=== PATIENT | female | born 1960 | race Caucasian/White ===

== ENCOUNTER 2017-03-10 16:05 | Emergency (ER) | payer MEDICAID ==
--- NOTE | 2017-03-10 16:19 | CPEKG ---
Heart Rate: 75 RR Interval: 800 P-R Interval: 152 QRSD Interval: 88 QT Interval: 396 QTC Interval: 443 P [place]: 68 QRS [place]: 74 T Wave [place]: -43 EKG Severity - NORMAL ECG - EKG Impression: SINUS RHYTHM EKG Impression: NON SPECIFIC ST/T WAVE CHANGES NOTED Electronically Signed By: Morgan Robertson 11-Mar-2017 09:26:48
[2017-03-10 16:40] LABS: % IMMATURE GRANULYOCYTES 0.2 % (0.0-1.1); ABSOLUTE IMMATURE GRANULOCYTES 0.01 10^3/uL (0.00-0.10); ADD DIFF? NO; ADD MORPH? NO; ADD SCAN? NO; ATYPICAL LYMPHOCYTE FLAG 10 (0-99); FRAGMENT RBC FLAG 0 (0-99); HEMATOCRIT 48.5 % (38.0-47.0); HEMOGLOBIN 16.2 g/dL (12.6-16.3); LEFT SHIFT FLG 0 (0-99); LIPEMIA HEMOLYSIS FLAG 80 (0-99); MEAN CELL HEMOGLOBIN 29.8 pg (27.9-34.1); MEAN CELL HEMOGLOBIN CONCENTR. 33.4 g/dL (32.4-36.7); MEAN CELL VOLUME 89.3 fL (81.5-99.8); MEAN PLATELET VOLUME 10.9 fL (8.7-11.7); PLATELET CLUMPS FLAG 0 (0-99); PLATELET COUNT 258 10^3/uL (150-400); RED BLOOD CELL COUNT 5.43 10^6/uL (4.18-5.33); RED CELL DISTRIBUTION WIDTH 12.8 % (11.5-15.2)
[2017-03-10 16:52] LABS: ANION GAP 14 mEq/L (8-16); CALCIUM 10.7 mg/dL (8.5-10.4); CARBON DIOXIDE 23 mEq/l (22-31); CHLORIDE 104 mEq/L (97-110); CREATININE 0.9 mg/dL (0.6-1.0); GLOMERULAR FILTRATION RATE > 60; GLUCOSE 80 mg/dL (70-100); POTASSIUM 4.2 mEq/L (3.5-5.2); SODIUM 141 mEq/L (134-144)
--- NOTE | 2017-03-10 16:54 | EDPHY ---
H & P Stated Complaint: dull ache midsternal cp for 6 weeks increasing fatigue Time Seen by Provider: 03/10/17 16:13 - Personal History Current Tetanus/Diphtheria Vaccine: Unsure - Medical/Surgical History Hx Asthma: No Hx Chronic Respiratory Disease: No Hx Diabetes: No Hx Cardiac Disease: No Hx Renal Disease: No Hx Cirrhosis: No Hx Alcoholism: No Hx HIV/AIDS: No Hx Splenectomy or Spleen Trauma: No Other PMH: denies - Social History Smoking Status: Never smoked Constitutional: Initial Vital Signs Temperature (C) 36.7 C 03/10/17 16:08 Heart Rate 65 03/10/17 16:08 Respiratory Rate 18 03/10/17 16:08 Blood Pressure 132/86 H 03/10/17 16:08 O2 Sat (%) 95 03/10/17 16:08 O2 Delivery Mode Room Air Allergies/Adverse Reactions: No Known Allergies Allergy (Verified 03/10/17 16:08) Home Medications: Medication Instructions Recorded NK [No Known Home Meds] 09/24/14 Medical Decision Making - Diagnostics Imaging Results: Imaging Impressions Chest X-Ray 03/10/17 16:34 Impression: Stable and normal. No pneumonia. Chest/Thorax CTA 03/10/17 17:35 Impression: No evidence for pulmonary embolic disease. Results called and discussed with Rg Ross MD, at 03/10/2017 18:35 General information for patients regarding this examination can be found at [email or web address]. If you have questions or comments about this report, please contact me at [phone] (hospital) or [phone] (cell). Imaging: Discussed imaging studies w/ screener and blender Radiologist, I viewed and interpreted images myself ED Course/Re-evaluation: CHIEF COMPLAINT: Chest pain HISTORY OF PRESENT ILLNESS: The patient is a 57 y/o female complaining of intermittent substernal chest pain and palpations for the last several months. In August she developed a cold, cough, and fever while in [facility]. She was not evaluated and felt ill for several weeks. She then developed intermittent chest pressure and pain. Her symptoms are most noticeable at night and cause difficulty sleeping and she feels like she can hear her heart beating. Her symptoms are not exacerbated by exertion and she has no associated radiation, diaphoresis, or nausea. At worst her pain is 5/10 in severity. She feels like she never recovered from her illness 6 months ago and continues to have a cough with yellowish sputum. In the past few days her pain became nearly constant rated about 3/10 in intensity and is associated with some lightheadedness. The lightheadedness episodes can last a few hours. She also feels more weak while performing typical tasks like gardening. No leg swelling. She was evaluated here in September 2014 for chest pain and had a normal ED work up, but left the hospital AMA rather than be admitted. REVIEW OF SYSTEMS: A 10 point review of systems was performed and is negative with the exception of the elements mentioned in the history of present illness. PHYSICAL EXAM: HR, BP, O2 Sat, RR. Temp noted General Appearance: Alert, well hydrated, appropriate, and non-toxic appearing. Head: Atraumatic without scalp tenderness or obvious injury Eyes: Pupils equal, round, reactive to light and accommodation, EOMI, no trauma , no injection. Ears: Clear bilaterally, no perforation, normal landmarks Nose: Atraumatic, no rhinorrhea, clear. Throat: Mucus membranes moist. Neck: Supple, non-tender, no lymphadenopathy. No JVD. Respiratory: No retractions, no distress, no wheezes, and no accessory muscle use. Diminished at the right base, otherwise normal. Cardiovascular: Regular rate and rhythm, no murmurs, rubs, or gallops. Good capillary refill all extremities. Gastrointestinal: Abdomen is soft, non-tender, non-distended, no masses, no rebound, no guarding, no peritoneal signs. Musculoskeletal: Normal active ROM of all extremities, atraumatic. No pitting edema. Neurological: Alert, appropriate, and interactive. Nonfocal neuro exam. Skin: No rashes, good turgor, no nodules on palpation. PAST MEDICAL HISTORY: Denies. No family history of cardiac disease. PAST SURGICAL HISTORY: Denies SOCIAL HISTORY: at bedside, non-smoker, traveled to [facility] in August. PCP: Dr. Ivana Page at [facility] DIAGNOSTICS/PROCEDURES/CRITICAL CARE TIME: The 12 lead EKG was interpreted by myself. Sinus rhythm rate 75, occasional PVC. See hard copy and/or "tracemaster" electronic copy for interpretation. Chest x-ray: negative Chest CTA: negative DIFFERENTIAL DIAGNOSIS: The differential diagnosis for the patient's shortness of breath and hypoxemia included but was not limited to pneumonia, myocardial infarction, acute mountain sickness, high altitude pulmonary edema, congestive heart failure, and pulmonary embolus. MEDICAL DECISION MAKING: This is an otherwise healthy 57 y/o female who presents with a 6-month history of nonresolving chest pain and cough, worsening over the last few days. Apart from mild diminished lung sounds in the right base, her exam is unremarkable and she is well-appearing. Concerned for infectious process like pneumonia or possibly PE. Plan for IV, labs including CBC, CHEM, troponin, d-dimer, EKG, and chest x-ray. Labs, EKG, and chest x-ray are unremarkable. Chest CTA is negative. I've discussed these results with the patient and recommended PCP follow up. Return precautions given. She is comfortable with this plan. - Data Points Laboratory Results: Laboratory Results 03/10/17 16:19 03/10/17 16:19 03/10/17 03/10/17 03/10/17 16:37 16:37 16:19 WBC RBC Hgb Hct MCV MCH MCHC RDW Plt Count MPV Neut % (Auto) Lymph % (Auto) [place] % (Auto) Eos % (Auto) Baso % (Auto) Nucleat RBC Rel Count Absolute Neuts (auto) Absolute Lymphs (auto) Absolute Monos (auto) Absolute Eos (auto) Absolute Basos (auto) Absolute Nucleated RBC Immature Gran % Immature Gran # D-Dimer < 0.27 ug/mLFEU ug/mLFEU (0.00-0.50) Sodium 141 mEq/L mEq/L (134-144) Potassium 4.2 mEq/L mEq/L (3.5-5.2) Chloride 104 mEq/L mEq/L (97-110) Carbon Dioxide 23 mEq/l mEq/l (22-31) Anion Gap 14 mEq/L mEq/L (8-16) BUN 18 mg/dL mg/dL (7-23) Creatinine 0.9 mg/dL mg/dL (0.6-1.0) Estimated GFR > 60 Glucose 80 mg/dL mg/dL (70-100) Calcium 10.7 mg/dL H mg/dL (8.5-10.4) Phosphorus 5.1 mg/dL H mg/dL (2.5-4.5) Troponin I < 0.012 ng/mL ng/mL (0-0.034) NT-Pro-B Natriuret Pep Cancelled 275 pg/mL H pg/mL (0-125) 03/10/17 16:19 WBC 5.57 10^3/uL 10^3/uL (3.80-9.50) RBC 5.43 10^6/uL H 10^6/uL (4.18-5.33) Hgb 16.2 g/dL g/dL (12.6-16.3) Hct 48.5 % H % (38.0-47.0) MCV 89.3 fL fL (81.5-99.8) MCH 29.8 pg pg (27.9-34.1) MCHC 33.4 g/dL g/dL (32.4-36.7) RDW 12.8 % % (11.5-15.2) Plt Count 258 10^3/uL 10^3/uL (150-400) MPV 10.9 fL fL (8.7-11.7) Neut % (Auto) 48.9 % % (39.3-74.2) Lymph % (Auto) 35.0 % % (15.0-45.0) [place] % (Auto) 9.7 % % (4.5-13.0) Eos % (Auto) 4.8 % % (0.6-7.6) Baso % (Auto) 1.4 % % (0.3-1.7) Nucleat RBC Rel Count 0.0 % % (0.0-0.2) Absolute Neuts (auto) 2.72 10^3/uL 10^3/uL (1.70-6.50) Absolute Lymphs (auto) 1.95 10^3/uL 10^3/uL (1.00-3.00) Absolute Monos (auto) 0.54 10^3/uL 10^3/uL (0.30-0.80) Absolute Eos (auto) 0.27 10^3/uL 10^3/uL (0.03-0.40) Absolute Basos (auto) 0.08 10^3/uL 10^3/uL (0.02-0.10) Absolute Nucleated RBC 0.00 10^3/uL 10^3/uL (0-0.01) Immature Gran % 0.2 % % (0.0-1.1) Immature Gran # 0.01 10^3/uL 10^3/uL (0.00-0.10) D-Dimer Sodium Potassium Chloride Carbon Dioxide Anion Gap BUN Creatinine Estimated GFR Glucose Calcium Phosphorus Troponin I NT-Pro-B Natriuret Pep Departure - Departure Disposition: Home, Routine, Self-Care Clinical Impression: Chest pain Qualifiers: Chest pain type: other chest pain Qualified Code(s): R07.89 - Other chest pain ; R07.8 - Other chest pain Condition: Good Instructions: Chest Pain (ED) Additional Instructions: Follow up with your PCP this week. Return to the ED for any worsening of condition. Referrals: Ivnaa Page MD [Primary Care Provider] - As per Instructions Report Scribed for: Rg Ross Report Scribed by: Lorena Cid Date of Report: 03/10/17 Time of Report: 16:43
[2017-03-10 17:04] LABS: TROPONIN I < 0.012 ng/mL (0-0.034)
[2017-03-10 18:21] VITALS: O2SAT 97
[2017-03-10 19:05] VITALS: BP 141/98; PULSE 74; RESP 14; TEMP 98.1
== END 2017-03-10 19:07 | disposition home or self-care (01) ==
DX: R07.89 Other chest pain (principal)

== ENCOUNTER → 2017-05-26 | Outpatient (CLI) | payer MEDICAID | LOC: FIMAGING 12:50 | PROVIDERS: ATTEND Internal Medicine | DX: E04.2 Nontoxic multinodular goiter (principal) ==